=== PATIENT | female | born 1945 | race Caucasian/White ===

== ENCOUNTER → 2023-12-27 13:30 | Outpatient (REF) | payer OTHER, SELFPAY | LOC: WDC 13:30 | PROVIDERS: ATTENDING PHYSICIAN Nurse Practitioner Gerontology | DX: Z12.31 Encounter for screening mammogram for malignant neoplasm of breast (principal) | CPT/HCPCS: 77063; 77067 ==

== ENCOUNTER → 2024-01-30 12:29 | Outpatient (REF) | payer OTHER, SELFPAY | LOC: PAVMRI 12:29 | PROVIDERS: ATTENDING PHYSICIAN Otolaryngology; FAMILY PHYSICIAN Student in an Organized Health Care Education/Training Program | DX: H90.A22 Sensorineural hearing loss, unilateral, left ear, with restricted hearing on the contralateral side (principal) | CPT/HCPCS: 70553; A9575 ==

== ENCOUNTER → 2024-09-20 14:51 | Outpatient (REF) | payer OTHER, SELFPAY | LOC: HWRCS 14:51 | PROVIDERS: ATTENDING PHYSICIAN Internal Medicine; FAMILY PHYSICIAN Student in an Organized Health Care Education/Training Program | DX: I51.81 Takotsubo syndrome (principal); I35.1 Nonrheumatic aortic (valve) insufficiency; I34.0 Nonrheumatic mitral (valve) insufficiency | CPT/HCPCS: 93306 ==

== ENCOUNTER → 2024-12-28 09:07 | Outpatient (REF) | payer OTHER, SELFPAY | LOC: HWWDC 09:07 | PROVIDERS: ATTENDING PHYSICIAN Nurse Practitioner; FAMILY PHYSICIAN Student in an Organized Health Care Education/Training Program | DX: Z12.31 Encounter for screening mammogram for malignant neoplasm of breast (principal) | CPT/HCPCS: 77063; 77067 ==

== ENCOUNTER → 2025-01-04 14:21 | Outpatient (REF) | payer OTHER, SELFPAY | LOC: HWRAD 14:21 | PROVIDERS: ATTENDING PHYSICIAN Internal Medicine Rheumatology; FAMILY PHYSICIAN Student in an Organized Health Care Education/Training Program; REFERRING PHYSICIAN Internal Medicine | DX: M81.0 Age-related osteoporosis without current pathological fracture (principal) | CPT/HCPCS: 77080 ==

== ENCOUNTER → 2025-02-28 06:51 | Outpatient (REF) | payer OTHER, SELFPAY | LOC: PAVMRI 06:51 | PROVIDERS: ATTENDING PHYSICIAN Physician Assistant; FAMILY PHYSICIAN Student in an Organized Health Care Education/Training Program | DX: M79.18 Myalgia, other site (principal); M76.892 Other specified enthesopathies of left lower limb, excluding foot; G57.02 Lesion of sciatic nerve, left lower limb; M54.16 Radiculopathy, lumbar region | CPT/HCPCS: 73721 ==

== ENCOUNTER 2025-03-29 18:21 | Emergency (ER) | payer OTHER, SELFPAY ==
[2025-03-29] VITALS (12 sets, daily range): BP systolic 128–166; BP diastolic 58–81; BMI 24.1
[2025-03-29] MEDS: TORADOL 15 MG IV (18:32)
--- NOTE | 2025-03-29 18:33 | ED.MUSCINJ ---
HPI-Injury
<Trev Vicente PA-C - Last Filed: 03/29/25 21:31>
General
Chief Complaint: Musculo-Skeletal Complaint
Source: patient
Exam Limitations: none
Time Seen by Provider: 03/29/25 18:24
History of Present Illness-Injury
Initial Injury comments:
79-year-old [id number] female presents via EMS with complaints of right elbow pain and deformity. She was walking and tripped and fell onto her right side. Since then she has had a deformed elbow. She was put in a splint and given
nitrous en route. She notes minimal pain. No head strike neck pain or hip pain. No other complaints at this time
Past History
<Trev Vicente PA-C - Last Filed: 03/29/25 21:31>
Past History
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
ED Past Surgical History: Cardiac (Cardiac catheterization in April 2017 showing clean coronaries, acute coronary syndrome/STEMI related to takotsubo cardiomyopathy) and Orthopedic (Elbow fracture repair)
Social History
Tobacco: Non-smoker
Alcohol: Occasional
Personal:
Living: with family
Employment: Retired
Family History
Family History: CAD; Negative Sudden
Phy Exam
<Trev Vicente PA-C - Last Filed: 03/29/25 21:31>
Physical Exam
Physical Exam:
General: Well-appearing female no acute respiratory distress
HEENT: Normocephalic atraumatic
Musculoskeletal exam: Deformity noted to the right elbow with ecchymosis and swelling medially. The upper arm and shoulder are nontender. The wrist is nontender. She is able to move all of her fingers on her right hand.
Vascular: Palpable radial and ulnar pulses right wrist
Neurologic: Good sensation of function to the right hand
Injury Course
<Trev Vicente PA-C - Last Filed: 03/29/25 21:31>
Orders/Labs/Results
Orders:
Orders
03/29/25 18:31
Ketorolac [Toradol] 15 mg .ROUTE .STK-MED ONE
Ketorolac [Toradol] 15 mg IV NOW STA
CR Elbow - Right Min 2 View Urgent
Comment:
Reason For Exam: pain/deformity
03/29/25 19:49
Propofol [Diprivan] 20 ml .ROUTE .STK-MED
03/29/25 20:11
CR Elbow - Right Min 2 View Urgent
Comment:
Reason For Exam: post-reduction
03/29/25 21:26
Hydrocodone 5/APAP 325 [[place] 5/325] 1 tablet PO NOW STA
<Rodriguez Olivia MD - Last Filed: 03/29/25 21:06>
Orders/Labs/Results
Orders:
Orders
03/29/25 18:31
Ketorolac [Toradol] 15 mg .ROUTE .STK-MED ONE
Ketorolac [Toradol] 15 mg IV NOW STA
CR Elbow - Right Min 2 View Urgent
Comment:
Reason For Exam: pain/deformity
03/29/25 19:49
Propofol [Diprivan] 20 ml .ROUTE .STK-MED
03/29/25 20:11
CR Elbow - Right Min 2 View Urgent
Comment:
Reason For Exam: post-reduction
03/29/25 21:26
Hydrocodone 5/APAP 325 [[place] 5/325] 1 tablet PO NOW STA
Procedures
<Trev Vicente PA-C - Last Filed: 03/29/25 21:31>
Moderate Sedation
ASA Risk Score: Class II
Chart and allergies reviewed: Yes
Consent for anesthesia obtained: Yes
Time out completed (validating right patient & procedure): Yes
Moderate Sedation Start Time(when first medication is given): 20:06
History of difficult intubation: No
Airway free of obstruction: Yes
Patient has a gag reflex: Yes
Patient is able to open mouth: Yes
Patient has no dentures: Yes
Patient has no loose teeth: Yes
Medication administered by Provider during Moderate Sedation: IV Propofol (mg)
Total dose administered: 70
Time drug administered: 20:06
Moderate Sedation Procedure End Time: 20:23
<Trev Vicente PA-C - Last Filed: 03/29/25 21:31>
MDM/Problems Addressed
Differential Diagnosis Includes:
Deformity right elbow patient is tolerating pain quite well. X-rays pending to evaluate for fracture or dislocation of both. Toradol ordered. May require sedation for reduction.
<Trev Vicente PA-C - Last Filed: 03/29/25 21:31>
*Critical Care Note
Total Time (30-74mins, 75-104mins- exclusive of procedures): Not Applicable
<DIANNA Costello Last Filed: 03/29/25 21:31>
Update Note
Update Note:
X-rays demonstrated the posterior and medial dislocation of the elbow.
Written consent was obtained for moderate sedation and reduction of the right elbow dislocation. Sedation performed by emergency room attending. Reduction was performed with longitudinal traction and medial pressure. Motion was felt of the elbow.
By palpation and visual inspection the elbow. To be back to normal. Postreduction x-rays were obtained which show successful reduction of the elbow. A posterior arm splint was applied using cast padding 2 inch OCL and Dieter bandages. Sling given
for comfort. She is established with [facility] orthopedics and we referred her to them for further evaluation
ED Attending Note
<Trev Vicente PA-C - Last Filed: 03/29/25 21:31>
-
Portions of this chart may have been created with voice recognition software.� Occasional wrong word or��sound alike� substitutions may have occurred due to the inherent limitations of voice recognition software.
<Rodriguez Olivia MD - Last Filed: 03/29/25 21:06>
ED Attending Note
Patient seen and examined by attending physician: Yes
I performed the substantive portion of visit, reviewed & personally made and approve the management plan that is documented in note by myself or JOSETTE.: Yes
ED Attending Note:
Patient fell causing an injury to the right elbow. No other injury or complaint. No head injury. No neck pain. No thinners.
On exam patient is nontoxic in no distress. Normocephalic atraumatic. Neck is supple and nontender. No chest wall tenderness. No airway issues. No dental issues. Warm and dry. Obvious lateral angulation at the elbow right elbow. Significant
ecchymosis. Good distal pulses and color.
Pression is dislocation of the right elbow. Consent was signed. Risks explained to patient. Patient was sedated with propofol and was reduced. Postreduction x-ray within normal limits.
Discharge Plan
Departure
Patient Disposition: Home (Routine Discharge)
Date of Disposition: 03/29/25
Time of Disposition: 21:15
Patient with high blood pressure during this ER visit?: No
Discharge Problem:
Dislocation of elbow
Instructions: Muscle and Bone Pain (DC), MODERATE SEDATION ADULT
Prescriptions:
New
hydrocodone-acetaminophen 5-325 mg tablet
1 tab PO Q8H PRN (Reason: Pain) Qty: 10 0RF
No Action
multivitamin with folic acid [Tab-A-Cynthia] 1 TABLET tablet
1 tab PO DAILY
latanoprost 1 DROP drops
1 drp OPHTHALMIC HS
atorvastatin 40 MG tablet
40 mg PO QPM Qty: 30 2RF
aspirin 81 MG tablet,delayed release (DR/EC)
81 mg PO DAILY 0RF
metoprolol succinate 12.5 MG tablet extended release 24 hr
12.5 mg PO DAILY Qty: 30 2RF
Referrals:
Nicolas Tineo MD [Active] -
Activity Restrictions/Additional Instructions:
Keep splint on and dry. Elevate for swelling. Use sling for support. You may use Tylenol or ibuprofen for pain. Return here if worse otherwise follow-up with orthopedics
Interventions
Interventions:
*General Assessment Last Done: 03/29/25 18:24
*Neglect/Abuse Screening Last Done: 03/29/25 19:58
*ED- Fall Risk Assessment Last Done: 03/29/25 18:28
*ED COVID-19 Vaccine History Last Done: 03/29/25 19:58
ED-Musculoskeletal Assessment Last Done: 03/29/25 19:59
Discharge Date and Time
Print Language: ECUADOREAN
[2025-03-29] MEDS: NORCO 5/325 1 TABLET PO (21:32)
== END 2025-03-29 21:45 | disposition home or self-care (01) ==
LOC: EMR 18:21
PROVIDERS: EMERGENCY PHYSICIAN Emergency Medicine; FAMILY PHYSICIAN Student in an Organized Health Care Education/Training Program
DX: S53.005A Unspecified dislocation of left radial head, initial encounter (principal); W01.0XXA Fall on same level from slipping, tripping and stumbling without subsequent striking against object, initial encounter; E78.00 Pure hypercholesterolemia, unspecified; I25.2 Old myocardial infarction; I51.81 Takotsubo syndrome; Y93.01 Activity, walking, marching and hiking; Z82.49 Family history of ischemic heart disease and other diseases of the circulatory system
CPT/HCPCS: 99283; 24600; 73070

== ENCOUNTER → 2025-05-28 15:51 | Outpatient (REF) | payer OTHER, SELFPAY | LOC: HWRAD 15:51 | PROVIDERS: ATTENDING PHYSICIAN Internal Medicine Rheumatology; FAMILY PHYSICIAN Student in an Organized Health Care Education/Training Program | DX: M40.04 Postural kyphosis, thoracic region (principal); M47.816 Spondylosis without myelopathy or radiculopathy, lumbar region; M81.0 Age-related osteoporosis without current pathological fracture | CPT/HCPCS: 72070; 72110 ==